=== PATIENT | male | born 1965 | race Hispanic/Latino ===

== ENCOUNTER 2024-07-16 10:49 | Emergency (ER) | payer SELFPAY ==
[2024-07-16 10:52] VITALS: BP 154/89; PULSE 72; RESP 16; TEMP 37.1; O2SAT 100
--- NOTE | 2024-07-16 12:18 | ED_ITS ---
HPI - General Adult General Chief complaint: Unspecified Stated complaint: continuous hiccups since Sunday afternoon Time Seen by Provider: 07/16/24 12:11 Source: patient Mode of arrival: ambulatory Limitations: language barrier History of Present Illness HPI narrative: 59 YEARS OLD MALE DOES NOT SPEAK [place] CAME WITH HIS FRIEND WHO SPEAKS [place] TELLING ME THAT HIS STARTED HAVING HEADACHE UP FOR LAST 6 DAYS. DENIES HISTORY OF HICCUPS. HISTORY OF HYPERTENSION, HYPERLIPIDEMIA, DOES NOT SMOKE OR DRINK OR USE DRUGS. HE DENIES ANY ABDOMINAL PAIN, CHEST PAIN, SHORTNESS OF BREATH, HEADACHE, BACK PAIN. Related Data Allergies Allergy/AdvReac Type Severity Reaction Status Date / Time No Known Allergies Allergy Verified 07/16/24 12:59 Review of Systems 2 Review of Systems: All systems reviewed & are unremarkable except as noted in HPI and below Exam 2 Narrative: GENERAL APPEARANCE: WELL-DEVELOPED, WELL-NOURISHED SKIN: NORMAL COLOR HEAD: NORMOCEPHALIC, NONTRAUMATIC EYES: CLEAR CONJUNCTIVA ENT: OROPHARYNX NORMAL, EARS NORMAL, NOSE NORMAL NECK: SUPPLE, NONTENDER CHEST AND RESPIRATORY: AIRWAY PATENT, NO RESPIRATORY DISTRESS, NO ACCESSORY MUSCLE USE HEART: REGULAR RATE/RHYTHM ABDOMEN: SOFT, NONTENDER, NO ORGANOMEGALY, QUIET BOWEL SOUNDS MUSCULOSKELETAL: NORMAL RANGE OF MOTION, NONTENDER BACK NEUROLOGIC: ALERT AND ORIENTED ?3, [place] PERSON IS NORMAL TESTED, NO GROSS MOTOR DEFICIT Course Vital Signs Vital signs: Vital Signs Temperature 37.1 C 07/16/24 10:52 Pulse Rate 72 07/16/24 10:52 Respiratory Rate 16 07/16/24 10:52 Blood Pressure 154/89 H 07/16/24 10:52 Pulse Oximetry 100 07/16/24 10:52 Oxygen Delivery Room Air 07/16/24 10:52 Temperature 36.3 C L 07/16/24 13:01 Pulse Rate 67 07/16/24 13:01 Respiratory Rate 22 H 07/16/24 13:01 Blood Pressure 181/99 H 07/16/24 13:01 Pulse Oximetry 100 07/16/24 13:01 Oxygen Delivery Room Air 07/16/24 10:52 Medical Decision Making [facility] Narrative Medical decision making narrative: PATIENT CAME WITH HICCUPS, VITAL SIGNS SHOWED STABLE PHYSICAL EXAMINATION INSIGNIFICANT DIFFERENTIAL DIAGNOSIS INCLUDE GERD, HIATAL HERNIAS, CENTRAL NERVOUS SYSTEM ABNORMALITIES, VASCULAR MALFORMATION, H PYLORI, ELECTROLYTE IMBALANCE, BLOOD WORKUP TODAY INCLUDES CBC, CMP, SED RATE, CRP SHOWED NO SIGNIFICANT ABNORMALITY URINALYSIS SHOWED NO EVIDENCE OF INFECTION MY PLAN TO DISCHARGE PATIENT ON OMEPRAZOLE FOR POSSIBLE GERD, GASTRITIS OR ESOPHAGITIS AND CHLORPROMAZINE FOR POSSIBLE STRESS, PSYCH, ISSUES. AND FOLLOW-UP WITH [employer] TECHNICIAN THE PT WAS DISCHARGED TO HOME.THE PT,S CONDITION UPON DISCHARGE WAS FAIR,EDUCATION WAS PROVIDED TO THE PT IN REFERENCE TO THE FINAL IMPRESSION,DISCHARGE STUDY RESULTS,TREATMENT,PROGNOSIS AND NEED FOR FOLLOW UP . Differential Diagnosis Differential Diagnosis: ABOVE Vital Signs Vital Signs: Vital Signs Temperature 37.1 C 07/16/24 10:52 Pulse Rate 72 07/16/24 10:52 Respiratory Rate 16 07/16/24 10:52 Blood Pressure 154/89 H 07/16/24 10:52 Pulse Oximetry 100 07/16/24 10:52 Oxygen Delivery Room Air 07/16/24 10:52 Temperature 36.3 C L 07/16/24 13:01 Pulse Rate 67 07/16/24 13:01 Respiratory Rate 22 H 07/16/24 13:01 Blood Pressure 181/99 H 07/16/24 13:01 Pulse Oximetry 100 07/16/24 13:01 Oxygen Delivery Room Air 07/16/24 10:52 Lab Data 07/16/24 12:57 07/16/24 12:57 Labs: Lab Results 07/16/24 Range/Units 12:57 WBC 6.5 (4.5-10.0) K/mm3 RBC 4.43 L (4.6-6.20) M/mm3 Hgb 12.7 L (14.0-18.0) g/dL Hct 39.3 L (42.0-52.0) % MCV 88.7 (80-100) fl MCH 28.7 (26-34) pg MCHC 32.3 (32-36) g/dl RDW 14.2 (11.5-14.5) % Plt Count 227 (150-375) k/mm3 MPV 11.0 H (7.4-10.4) fl Immature Gran % (Auto) 0.2 (0-0.5) % Neut % (Auto) 59.6 (45.5-73.1) % Lymph % (Auto) 29.4 (18.3-44.2) % [place] % (Auto) 9.3 H (2.6-8.5) % Eos % (Auto) 1.2 (0-4.4) % Baso % (Auto) 0.3 (0.2-1.2) % Lymph # (Auto) 1.90 (0.9-3.2) K/mm3 [place] # (Auto) 0.6 (0.1-0.6) K/mm3 Eos # (Auto) 0.1 (0-0.3) K/mm3 Baso # (Auto) 0.0 (0.0-0.1) K/mm3 Abs Immat Gran (auto) 0.01 (0.00-0.031) K/mm3 Absolute Neuts (auto) 3.9 (1.3-6.7) K/mm3 Absolute Nucleated RBC 0.000 (0.0-0.012) K/mm3 Nucleated RBC % 0.0 (0.0-0.2) % ESR 16 (0-20) mm/hr Sodium 140 (137-145) mmol/L Potassium 3.7 (3.4-5.0) mmol/L Chloride 106 (98-107) mmol/L Carbon Dioxide 26 (22-30) mmol/L Anion Gap 8 (4-12) mmol/L BUN 18 (9-20) mg/dL Creatinine 0.74 (0.7-1.3) mg/dL Estim Creat Clear Calc 76 ml/min Estimated GFR > 60 (59 - ) Glucose 165 H (65-110) mg/dL Calcium 9.1 (8.4-10.2) mg/dL Total Bilirubin 1.4 H (0.2-1.3) mg/dL AST 25 (17-59) U/L ALT 19 (6-50) U/L Alkaline Phosphatase 48 (38-126) U/L C-Reactive Protein < 0.5 (<1.0) mg/dL Total Protein 8.0 (6.3-8.2) g/dL Albumin 4.6 (3.5-5.1) g/dL Amylase 57 (30-110) U/L Lipase 46 (23-300) U/L Urine Color Yellow (Yellow) Urine Appearance Clear (Clear) Urine pH 5.5 (5.0-9.0) Ur Specific [place] 1.020 (1.001-1.035) Urine Protein 2+ H (Negative) mg/dL Urine Glucose (UA) 2+ H (Negative) mg/dL Urine Ketones Negative (Negative) mg/dL Ur Blood (Man) Negative (Negative) Urine Nitrate Negative (Negative) Urine Bilirubin Negative (Negative) Urine Urobilinogen 1.0 (<2.0) mg/dL Leukocyte Esterase Rfl Negative (Negative) CHIP/UL Urine RBC 0-2 (0-2) /hpf Urine WBC 0-5 (0-3) /hpf Ur Squamous Epith Cells None seen (Few) /hpf Urine Bacteria None seen /hpf Urine Casts 0-2 Critical Care Time Critical Care Time Critical Care Time: No Discharge Plan Discharge Clinical Impression: Hiccups Patient Disposition: Home Condition: Stable Instructions: Hiccups (ED) Patient Language: Malian Prescriptions: New chlorpromazine 25 mg tablet 25 mg PO Q6H PRN (Reason: hiccups) Qty: 14 0RF omeprazole 40 mg capsule,delayed release(DR/EC) 40 mg PO DAILY Qty: 14 0RF Follow-up/Referrals: PHYSICIAN,PHOTO SPECIALIST [Non-Staff] - Edwin Velasquez MD [Physician] - 07/21/24
[2024-07-16 13:01] VITALS: BP 181/99; PULSE 67; RESP 22; TEMP 36.3; O2SAT 100
[2024-07-16 13:08] LABS: Basophils Percent Auto 0.3 % (0.2-1.2); Eosinophils Absolute Auto 0.1 K/mm3 (0-0.3); Eosinophils Percent Auto 1.2 % (0-4.4); Hematocrit 39.3 % (42.0-52.0); Hemoglobin 12.7 g/dL (14.0-18.0); Immature Granulocyte Absolute 0.01 K/mm3 (0.00-0.031); Immature Granulocyte Percent A 0.2 % (0-0.5); Lymphocytes Percent Auto 29.4 % (18.3-44.2); Mean Corpuscular HGB Conc 32.3 g/dl (32-36); Mean Corpuscular Hemoglobin 28.7 pg (26-34); Mean Corpuscular Volume 88.7 fl (80-100); Monocytes Absolute Auto 0.6 K/mm3 (0.1-0.6); Monocytes Percent Auto 9.3 % (2.6-8.5); Neutrophils Absolute Auto 3.9 K/mm3 (1.3-6.7); Neutrophils Percent Auto 59.6 % (45.5-73.1); Platelet Count Result 227 k/mm3 (150-375); Red Blood Count 4.43 M/mm3 (4.6-6.20); Red Cell Distribution Width 14.2 % (11.5-14.5); White Blood Count 6.5 K/mm3 (4.5-10.0)
[2024-07-16 13:14] LABS: Add Urine Microscopic? YES; Appearance Urine Clear (Clear); Bacteria Urine None Seen /hpf; Bilirubin Urine Negative (Negative); Blood Urine Negative (Negative); Color Urine Yellow (Yellow); Glucose Urine UA 2+ mg/dL (Negative); Ketones Urine Negative (Negative); Leukocyte Esterase Ur Negative LEU/UL (Negative); Nitrate Urine Negative (Negative); Non Pathogenic Casts 0-2; Protein Urine 2+ mg/dL (Negative); RBC Urine 0-2 /hpf (0-2); Squamous Epithelial Cell Urine None Seen /hpf (Few); WBC Urine 0-5 /hpf (0-3); pH Urine 5.5 (5.0-9.0)
[2024-07-16 13:26] LABS: Alanine Aminotransferase 19 U/L (6-50); Albumin Level 4.6 g/dL (3.5-5.1); Alkaline Phosphatase 48 U/L (38-126); Amylase 57 U/L (30-110); Anion Gap 8 mmol/L (4-12); Aspartate Amino Transferase 25 U/L (17-59); Bilirubin,Total 1.4 mg/dL (0.2-1.3); Blood Urea Nitrogen 18 mg/dL (9-20); CRP < 0.5 mg/dL (<1.0); Calcium 9.1 mg/dL (8.4-10.2); Carbon Dioxide 26 mmol/L (22-30); Chloride 106 mmol/L (98-107); Estimated CRCL calculation 76 ml/min; Estimated Glomerular Filt Rate > 60; Glucose 165 mg/dL (65-110); Lipase 46 U/L (23-300); Potassium 3.7 mmol/L (3.4-5.0); Sodium 140 mmol/L (137-145)
[2024-07-16 14:02] LABS: Erythrocyte Sedimentation Rate 16 mm/hr (0-20)
[2024-07-16 15:32] VITALS: BP 157/86; PULSE 59; RESP 18; O2SAT 99
== END 2024-07-16 15:34 | disposition home or self-care (01) ==
PROVIDERS: Emergency Provider Emergency Medicine
DX: R06.6 Hiccough (principal); I10 Essential (primary) hypertension; E78.5 Hyperlipidemia, unspecified
CPT/HCPCS: 36415; 80053; 81001; 82150; 83690; 85025; 85652; 86140; 99283